=== PATIENT | male | born 1990 | race Caucasian/White ===

== ENCOUNTER → 2016-04-06 | Outpatient (CLI) | payer BC ==
--- NOTE | 2016-04-07 08:02 | US ---
EXAMINATION TYPE: US groin extremity LT DATE OF EXAM: 04/06/2016 5:57 PM COMPARISON: NONE CLINICAL HISTORY: Left groin lump, discomfort when gets bumped, no injury. Grayscale, color Doppler imaging performed. TECHNOLOGIST IMPRESSION: Area of lump scanned in left groin. Multiple lymph nodes seen, vascular fl ow seen. Largest measured: 1- 2.5 x 1.2 x 0.6 cm 2- 1.6 x 1.0 x 0.7 cm 3- 1.2 x 0.8 x 0.6 cm 4- 1.0 x 0.7 x 0.3 cm Color flow noted to the nodes. IMPRESSION: Borderline enlarged groin nodes, correlate for reactive change, follow-up clinically
== END | disposition home or self-care (01) ==
LOC: RADUSMAIN 17:35
PROVIDERS: ATTEND Pediatrics
DX: R59.0 Localized enlarged lymph nodes (principal)

== ENCOUNTER → 2018-01-24 | Outpatient (CLI) | payer BC | END | disposition home or self-care (01) | LOC: RADUSWWP 06:55 | PROVIDERS: ATTEND Pediatrics | DX: Z53.9 Procedure and treatment not carried out, unspecified reason (principal) ==